=== PATIENT | female | born 1985 | race Caucasian/White ===

== ENCOUNTER 2020-02-21 10:17 | Outpatient (CLI) | payer OTHER | END 2020-02-21 23:59 | disposition home or self-care (01) | LOC: LAB 10:17 → EEVIPCON 10:17 → LAB 23:59 | PROVIDERS: ATTEND Internal Medicine Infectious Disease | DX: Z20.828 Contact with and (suspected) exposure to other viral communicable diseases (principal) | CPT/HCPCS: 36415; 87635 ==